=== PATIENT | male | born 1960 | race Caucasian/White ===

== ENCOUNTER 2016-06-24 18:42 | Emergency (ER) | payer OTHER ==
[~2016-06-24] VITALS: Ht 177.8 cm; Wt 121.8 kg
[~2016-06-24 18:42] MED LIST: ALBU6.7H INH; ALBU8.5H4 IH; COMBIVENTA INH; MELA1TAB16 PO; MOME0.132 IH; MONT10TA23 PO; PSEU60TA PO; SYMINH IH; TIOT18CA3 IH
[2016-06-24 18:47] VITALS: BP 143/85; PULSE 71; RESP 16; O2SAT 97
[2016-06-24 19:18] LABS: BASOPHILS % (AUTO) 0.6 % (0-3); EOSINOPHILS % (AUTO) 3.7 % (0-5); MONOCYTES % (AUTO) 6.4 % (4-12); Mean Corpuscular Hemoglobin 29.5 pg (27.0-35.0); Mean Corpuscular Volume 88.9 fL (81-100); NEUTROPHILS % (AUTO) 64.6 % (40-74); Platelet Count 297 bil/L (150-400)
--- NOTE | 2016-06-24 21:36 | ED.REPORT ---
HPI-Abd Pain M 40 and Over Date of Service Jun 24, 2016 ED Provider: Isac Gonzalez MD Patient is a 55 year old male with recent back surgery presents to the ED complaining of RLQ abdominal pain that began 9 days ago, with bloody bowel movements that began 3 days ago. Patient states that there was blood on the outside of his stool, with bright red blood when he wipes. He reports occasional associated dizziness but denies nausea, vomiting, fever, chills, or diarrhea. Patient is not on any blood thinning medications. He has previously had a cholecystectomy but denies any other abdominal surgeries. Patient denies a history of diverticulitis. Patient states that his recent surgery was to "cut nerves in his back". The patient is followed by the [facility]. Nursing Notes Stated Complaint: LOWER ABDOMINAL PAIN, BLOOD IN STOOL Chief Complaint: Male Abdominal Pain Nursing Notes Reviewed: Yes Allergies: Coded Allergies: tetracycline (Verified Allergy, Unknown, 06/24/16) Scheduled Budesonide/Formoterol 160-4.5 mcg Inh (Symbicort 160-4.5 mcg Inh) 1 Puff Inha 1- 2 PUFF IH BID Melatonin/Pyridoxine (Melatonin 5 mg Tablet) 1 Each Tablet 1 EACH PO HS Montelukast (Montelukast) 10 Mg Tablet 10 MG PO DAILY Tiotropium [place] (Spiriva) 18 Mcg Cap.w.dev 18 MCG IH DAILY Scheduled PRN Albuterol HFA (Albuterol HFA) 8.5 Gm Hfa.aer.ad 1-2 PUFF IH Q4 PRN PRN For Shortness of Breath Albuterol Sulfate (Proventil HFA Inhaler) 6.7 Gm Hfa.aer.ad 1 PUFF INH Q4 PRN PRN For Shortness of Breath Pseudoephedrine HCl (Pseudoephedrine HCl) 60 Mg Tablet 60 MG PO QIDWA PRN PRN For Congestion Miscellaneous Medications Albuterol/Ipratropium (Combivent Inhaler) 14.7 Gm Aero GM INH Mometasone Furoate (Asmanex) 110 Mcg Aer.pow.ba 110 MCG IH General Time Seen by MD: 21:35 Chief Complaint Abdominal pain, Other (bloody stool) Hx Obtained From: Patient Arrived By: Walk-in Sudden in Onset?: No Onset Occurred: 3 days ago Symptom Duration: Since onset Location: : RLQ Quality: Painful Severity: Current: Moderate Severity: Maximum: Moderate Recent Healthcare: No recent doctor visit, No recent hospitalization Similar Sx Previous: No Past Medical History Past Medical History Asthma History of multiple hospitalizations for pneumonia MARKUS Past Surgical History Cholecystectomy Right pneumonectomy secondary to trauma more than 20+ years ago Right tib-fib reconstruction following trauma Reports: Back/neck surgery Smoking History Never Smoker Social History Alcohol Use: In recovery Drug Use: Denies drug use Other Social History: Local resident Ambulatory Status Independent Review of Systems Constitutional: Denies: Chills, Fever GI: Reports: Abdominal pain, Bloody/tarry stool, Denies: Diarrhea, Nausea, Vomiting Complete sys rev & neg: except as marked. Neurologic: Reports: Dizziness, Lightheaded Physical Exam Initial Vital Signs Vital Signs (First) Date Time Temp Pulse Resp B/P Pulse Ox O2 Delivery O2 Flow Rate FiO2 06/24/16 18:47 36.3 71 16 143/85 97 Room Air Initial VS: Reviewed, Vital signs normal Head / Eyes: Atraumatic, Normocephalic, PERRL ENT: Conjunctiva normal, No scleral icterus Neck: Supple, Full range of motion Extremities: Vascular intact, Neuro intact Skin: Warm, Dry, No cyanosis Neurologic: Alert, Oriented, Nonfocal Psychiatric: Mood/affect normal, Behavior normal, Normal thought content General/Constitutional: Awake, Alert, No acute distress Appearance / Presentation: Positive: Obese Respiratory / Chest: Breath sounds NL, Breath sounds = bilat, No respiratory distress, No rales, No rhonchi, No wheezing Cardiovascular: Heart rate NL, Regular rhythm, Heart sounds NL Abdomen: Soft Tenderness/Guarding/Rebound: Positive: Tender RLQ... Back: No midline vertebral tend, No CVA tenderness Rectum / Perineum: No fecal impaction, No fissures Rectum / Perineum Abnl: Positive: Hemorrhoid bleeding (abrasion and clot on the surface), Hemorrhoid external, Negative: Hemorrhoid thrombosed red blood around the anus Interpretation & Diagnostics Lab Results Interpretation Result Diagram: 06/24/16191306/24/161913 Test 06/24/16 19:14 White Blood Count 11.0th/mm3 (3.8-10.1) Red Blood Count 5.22mil/mm3 (4.40-5.80) Hemoglobin 15.4g/dL (13.8-17.2) Hematocrit 46.4% (41.0-50.0) Mean Corpuscular Volume 88.9fL (81-100) Mean Corpuscular Hemoglobin 29.5pg (27.0-35.0) Mean Corpuscular Hemoglobin Concent 33.2% (32.0-37.0) Red Cell Distribution Width 13.0% (12.3-15.4) Platelet Count 297bil/L (150-400) Neutrophils (%) (Auto) 64.6% (40-74) Lymphocytes (%) (Auto) 24.4% (14-46) Monocytes (%) (Auto) 6.4% (4-12) Eosinophils (%) (Auto) 3.7% (0-5) Basophils (%) (Auto) 0.6% (0-3) Prothrombin Time 10.4sec (8.1-12.5) Prothromb Time International Ratio 0.97ratio Sodium Level 140mEq/L (134-144) Potassium Level 4.0mEq/L (3.5-5.2) Chloride Level 100mEq/L (97-108) Carbon Dioxide Level 25mmol/L (18-29) Blood Urea Nitrogen 16mg/dL (6-24) Creatinine 0.99mg/dL (0.76-1.27) Estimat Glomerular Filtration Rate 83mL/min (>59) Glucose Level 90mg/dL (60-99) Calcium Level 9.3mg/dL (8.5-10.1) Magnesium Level 2.0mg/dL (1.6-2.6) Total Bilirubin 0.3mg/dL (0.0-1.2) Aspartate Amino Transf (AST/SGOT) 13U/L (0-50) Alanine Aminotransferase (ALT/SGPT) 21U/L (0-44) Alkaline Phosphatase 83U/L (25-150) Total Protein 7.3g/dL (6.4-8.4) Albumin 4.6g/dL (3.4-5.0) Lipase 61U/L (13-60) Hold Dia Top Tube Received (Received) Lab values outside NL range: no clinical significance. ECG Interpretation ECG Interpretation: Normal Sinus Rhythm, Rate 66 Time: 21:48 Interpreted by: ED physician Normal ECG Interpretation: No acute ischemic changes CT Abd / Pelvis Interpretation CONCLUSION: Appendix not identified, however no secondary signs of acute appendicitis is seen. No evidence of obstructive uropathy. Status post cholecystectomy. Parenchymal scarring and surgical clips noted within the right middle lobe. Radiologist: Michael Valentino MD 06/24/2016 - 10:25:37 PM PDT Interpretation / Wet Read by: Interpret - Radiologist Re-Eval/Medical Decision Med Decision/Clinical Course 55-year-old male with an intermittently bleeding hemorrhoid. There is no evidence of hypovolemia or anemia. He does have some abdominal discomfort associated with this so a CT scan was done which did not reveal any significant abnormalities. Specifically, he has no appendicitis or diverticulitis. He will use femoral suppositories and follow-up with his regular doctor for further evaluation and treatment of hemorrhoid and for lower endoscopy to rule out a higher level bleed. Source of Hx: Old records Time of Eval: 22:57 Patient Status: Condition improved Re-Evaluation/Progress Note: Rechecked the patient to discuss the results of his CT scan, which wasnegative. He was found to have a hemorrhoid on rectal exam. Patient understands and agrees with the plan to be discharged home. Discharge instructions and follow-up discussed. All questions were addressed. Return to the ED warnings given. Counseled Regarding: Diagnosis, Lab results, Need for follow-up, When/why to return to ED Discharge & Departure Primary Impression: Hemorrhoid Hemorrhoid type: unspecified Qualified Code: K64.9 - Unspecified hemorrhoids Additional Impression: Generalized abdominal pain Disposition: Home Vital Signs - All Vital Signs Date Time Temp Pulse Resp B/P Pulse Ox O2 Delivery O2 Flow Rate FiO2 06/24/16 23:43 64 30 143/77 95 Room Air 06/24/16 23:09 63 15 130/74 97 Room Air 06/24/16 18:47 36.3 71 16 143/85 97 Room Air )( All Prior VS Reviewed: Yes Condition: Stable Patient Instructions: Hemorrhoids (ED) Additional Instructions: The CT scan is normal with no evidence of a serious or surgical cause for your lower abdominal pain. You do have a hemorrhoid which has been bleeding. Preparation H or similar hemorrhoidal suppository one daily will help shrink it. This is not available with prescription, only [id number]. You will need further evaluation with lower endoscopy to make sure there is not a more serious pathology. Call Dr. Harp's office to schedule colonoscopy. Referrals: Raymond Davis MD (PCP) Gianni Harp MD Attestation Portions of this note were transcribed by Alethea Hayden. I, Dr. Gonzalez personally performed the history, physical exam and medical decision-making; I reviewed and confirmed the accuracy of the information in the transcribed note. Signed by: Flaca Middleton, 06/24/2016 [id number] copies to: Raymond Davis MD, Howard L MD Jun 24, 2016 21:36 Alethea Hayden Jun 24, 2016 21:45
[2016-06-24] MEDS ORDERED: 0.9% Sodium Chloride 1,000 ML IV ONE (21:37)
[2016-06-24] MEDS ORDERED: HYDROmorphone 0.5 mg/0.5 mL iSecure Syringe IVPUSH PRN (21:40)
[2016-06-24] MEDS ORDERED: Ondansetron 2 mg/mL 2 mL Inj IVPUSH PRN (21:40)
[2016-06-24] MEDS ORDERED: Phenylephrine 0.25% Rectal Suppository RECTAL ONE (23:00)
[2016-06-24 23:09] VITALS: BP 130/74; PULSE 63; RESP 15; O2SAT 97
[2016-06-24 23:43] VITALS: BP 143/77; PULSE 64; RESP 30; O2SAT 95
[2016-06-24 23:55] LABS: INR 0.97 ratio
--- NOTE | 2016-06-25 09:10 | DRSVH ---
PROCEDURE: CT ABDOMEN AND PELVIS WITH CONTRAST ([id number]) INDICATIONS: RLQ abd pain, blood in stool TECHNIQUE: After the administration of intravenous contrast, 5 mm thick sections acquired from the diaphragm to the symphysis. 5 mm coronal and sagittal reformats were acquired. For radiation dose reduction, the following was used: automated exposure control, adjustment of mA and/or kV according to patient siz e. COMPARISON: None. FINDINGS: Image quality: Excellent. ABDOMEN: Lung bases: Lung bases are clear. Surgical clips and postsurgical scarring are noted in the right bulmaro ng base. Heart size is normal. Solid organs: Liver and spleen are normal in size and enhancement. Gallbladder is surgically absent . Biliary system is non dilated. Pancreas enhances normally. No adrenal nodules. Kidneys demonstr ate normal size and enhancement, without hydronephrosis. Peritoneum and bowel: Bowel loops demonstrate normal wall thickness and caliber. No free fluid or a ir. The appendix is not definitely visualized. No free fluid or inflammatory changes noted adjacent t o the cecum. Nodes and vessels: No retroperitoneal or mesenteric adenopathy by size criteria. Aorta and inferior vena cava are normal in size. Miscellaneous: No ventral hernias. PELVIS: Genitourinary: Bladder wall thickness is normal. Miscellaneous: No inguinal hernias or adenopathy. Bones: No suspicious bony lesions. No vertebral body compression fractures. Spine degenerative disc disease and facet arthropathy are noted. IMPRESSION: 1. No free fluid or air. 2. No dilated loops of bowel. 3. No inflammatory changes. 4. Status post cholecystectomy. 5. Scarring and surgical clips noted in the right lung base. Dictated by: Kia Patel MD, PhD on 06/25/2016 at 9:03 Approved by: Kia Patel MD, PhD on 06/25/2016 at 9:09
[2016-07-29] MEDS ORDERED: CITA40TA13 PO (09:43)
[2016-07-29] MEDS ORDERED: ZOLP1.752 SL (09:43)
[2016-07-29] MEDS ORDERED: HYDR-656 PO (09:43)
[2016-07-29] MEDS ORDERED: GABA600T2 PO (09:43)
== END 2016-06-24 23:44 | disposition home or self-care (01) ==
LOC: SED 18:42
DX: K64.9 Unspecified hemorrhoids (principal); R10.84 Generalized abdominal pain; J45.909 Unspecified asthma, uncomplicated; Z90.49 Acquired absence of other specified parts of digestive tract; Z98.890 Other specified postprocedural states; Z87.01 Personal history of pneumonia (recurrent); Z88.1 Allergy status to other antibiotic agents
CPT/HCPCS: 36415; 74177; 80053; 83690; 83735; 85025; 85610; 93005; 96361; 96374; 96375; 99285; J1170; J2405; J7030; Q9967

== ENCOUNTER 2016-07-30 09:29 | Day surgery (SDC) | payer OTHER ==
[~2016-07-30] VITALS: Ht 179.1 cm; Wt 121.1 kg
[~2016-07-30 09:29] MED LIST changes: +CITA40TA13 PO; -COMBIVENTA INH; +GABA600T2 PO; +HYDR-656 PO; -MOME0.132 IH; -MONT10TA23 PO; -PSEU60TA PO; +Sodium Chloride LOK Flush 10 mL Syringe IV PRN; -TIOT18CA3 IH; +ZOLP1.752 SL; +fentaNYL-PF 50 mCg/mL 2 mL Inj IVPUSH PRN
[2016-07-30 10:24] VITALS: BP 143/80; PULSE 60; RESP 14; O2SAT 95
[2016-07-30] MEDS ORDERED: 0.9% Sodium Chloride 1,000 ML IV ONE (10:37)
[2016-07-30 11:12] VITALS: BP 158/93; PULSE 52; RESP 16; O2SAT 95
[2016-07-30 11:22] VITALS: BP 157/87; PULSE 53; RESP 16; O2SAT 96
--- NOTE | 2016-07-30 11:24 | ENDO ---
[address] [address] ENDOSCOPY PROCEDURE PATIENT: ALYSA BAIRD : 1960 MR#: [id number] ADMIT: 07/30/2016 JOB ID: [id number] DATE OF SERVICE: 07/30/2016 PROCEDURE: Colonoscopy with hot snare polypectomy. PREOPERATIVE DIAGNOSIS(ES): Rectal bleeding. POSTOPERATIVE DIAGNOSIS(ES): 1. Sigmoid diverticulosis. 2. A 5 mm sigmoid polyp, removed by hot snare polypectomy. ANESTHESIA: Fentanyl 100 mcg, Versed 5 mg IV administered. COMPLICATIONS: None. BLOOD LOSS: Minimal. DESCRIPTION OF PROCEDURE: After risks and benefits explained to the patient, informed consent was obtained. After anesthesia administered, colonoscope was inserted from the rectum to the cecum. Mucosa carefully examined. Prep of the patient was excellent. After procedure was done, the scope was withdrawn and the procedure terminated. FINDINGS: Upon inspection of the anus, no masses, hemorrhoids, ulcers, fissures that were seen throughout the entire examination. There were there was a 5 mm sigmoid polyp removed by hot snare polypectomy. There was mild sigmoid diverticulosis. Retroflexion was normal. IMPRESSION: 1. Mild sigmoid diverticulosis. 2. A 5 mm sigmoid polyp, removed by hot snare polypectomy. RECOMMENDATIONS: Await pathology results. If tubular adenoma, then next colonoscopy in five years. Otherwise his next colonoscopy if it is not tubular adenoma should be in 10 years.
[2016-07-30 11:28] VITALS: BP 143/86; PULSE 55; RESP 16; O2SAT 98
--- NOTE | 2016-08-02 14:03 | PATH ---
SURGICAL PATHOLOGY Attending Physician:Gianni Harp MD CASE STATUS: Signed Out PATIENT NAME: ALYSA BAIRD PID: [id number] : 1960 DATE COLLECTED:07/30/2016 20:12 SPECIMEN: Colon, Biopsy CLINICAL HISTORY: 1). SIGMOID POLYP FINAL DIAGNOSIS: 1.SIGMOID COLON POLYP: HYPERPLASTIC POLYP. ICD10 CODE K63.5 GROSS DESCRIPTION: Received in formalin, labeled with the patient' s name and "sigmoid polyp", is one fragment of sanchez, soft tissue measuring 0.3 x 0.3 x 0.3 cm. The fragment is bisected and totally submitted in one cassette. ([id number]) MICRO DESCRIPTION: See diagnosis. ICD-9 CODES: CPT CODES: 1: 12951 Electronically Signed Out Parker Sinclair MD [facility] Pathology [facility] [address], [place] [address] Technical component performed at [facility], [facility] [address], [place], [address]
== END 2016-07-30 23:59 | disposition home or self-care (01) ==
LOC: END 09:29
PROVIDERS: ATTEND Internal Medicine Gastroenterology
DX: K57.30 Diverticulosis of large intestine without perforation or abscess without bleeding (principal); D12.5 Benign neoplasm of sigmoid colon; K62.5 Hemorrhage of anus and rectum; J45.909 Unspecified asthma, uncomplicated; M54.5 Low back pain; G89.29 Other chronic pain; G62.9 Polyneuropathy, unspecified
CPT/HCPCS: 45385; G0500; J7030